=== PATIENT | male | born 1945 | race Caucasian/White ===

== ENCOUNTER 2022-03-31 10:40 | Outpatient (CLI) | payer MEDICARE, OTHER, SELFPAY | END 2022-03-31 10:41 | disposition home or self-care (01) | LOC: CHSOUTPT 10:52 | PROVIDERS: PCP Family Medicine; Visit Provider Specialist | DX: C44.319 Basal cell carcinoma of skin of other parts of face (principal) | CPT/HCPCS: 88305 ==

== ENCOUNTER 2023-04-13 09:47 | Outpatient (CLI) | payer MEDICARE, OTHER, SELFPAY | END 2023-04-13 09:48 | disposition home or self-care (01) | PROVIDERS: PCP Specialist; Visit Provider Specialist | DX: C44.319 Basal cell carcinoma of skin of other parts of face (principal) | CPT/HCPCS: 88305 ==

== ENCOUNTER 2023-08-03 17:09 | Emergency (ER) | payer OTHER, SELFPAY ==
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
[2023-08-03 17:17] VITALS: BP 142/74; PULSE 81; RESP 20; TEMP 36.7; O2SAT 94
[2023-08-03 17:40] VITALS: BP 139/90; PULSE 79; RESP 20; O2SAT 99
[2023-08-03 18:03] VITALS: BP 138/89; PULSE 78; RESP 18; TEMP 36.6; O2SAT 98
== END 2023-08-03 18:04 | disposition home or self-care (01) ==
PROVIDERS: Emergency Provider Emergency Medicine; PCP Family Medicine
DX: S29.012A Strain of muscle and tendon of back wall of thorax, initial encounter (principal); E78.5 Hyperlipidemia, unspecified; I10 Essential (primary) hypertension; Z79.899 Other long term (current) drug therapy; Z87.891 Personal history of nicotine dependence; V49.49XA Driver injured in collision with other motor vehicles in traffic accident, initial encounter
CPT/HCPCS: 72128; 99284; L0150

== ENCOUNTER 2024-06-13 12:55 | Outpatient (CLI) | payer MEDICARE, OTHER, SELFPAY | END 2024-06-13 12:56 | disposition home or self-care (01) | LOC: CHSLAB 12:58 | PROVIDERS: PCP Specialist; Visit Provider Specialist | DX: C44.629 Squamous cell carcinoma of skin of left upper limb, including shoulder (principal) | CPT/HCPCS: 88305 ==

== ENCOUNTER 2025-05-01 10:53 | Outpatient (CLI) | payer MEDICARE, OTHER, SELFPAY ==
--- NOTE | 2025-05-01 | S_PTH ---
PATIENT: Win Swenson LOC: [facility]#:[id number] AGE/SX: 80/M ROOM: RE05/01/[address]: Marc Taylor M.D. : 1945 BED: DIS: 05/01/2025 SPEC #: [id number] RECD: 05/01/25 17:31 STATUS: [place]ALL #: [id number] YNES: 05/01/25 00:[address]: Marc Taylor DEPT: [facility] Surgical RECD BY: Karina Quiros MLT, ([facility]) Tissues: A - Skin Bx B - Skin Bx C - Skin Bx Procedures: Hematoxylin and Eosin Stain Gross and Microscopic Level 4
--- OUTSIDE RECORDS SUMMARY | 2025-05-01 12:02 | XMS_ITS | Clinical Summary ---
Author Organization [facility] Address [address] [place] [address] Care Team Providers Care Refrigerator Assembler Name Role Phone Андрей Bettencourt MD Primary Care Provider [phone] Pamela THAKKAR MD, [facility] [phone] Allergies No known active allergies Medications aspirin 81 mg tablet Take one by mouth one time per day 0 0 06/06/20 07 Active psyllium, aspartame, SF (Metamucil Fiber Singles) 3.4 gram packet Take 1 packet by mouth daily Active clobetasoL (TEMOVATE) 0.05 % ointment APPLY OINTMENT TOPICALLY ONCE DAILY NEEDED TO HAND RASH 03/31/20 22 Active omeprazole (PriLOSEC) 20 mg capsuleIndications:Jacqueline roesophageal reflux disease with esophagitis Take 1 capsule by mouth once daily 100 capsule 03/09/20 25 Active atorvastatin (LIPITOR) 20 mg tabletIndications:Pure hypercholesterolemia Take 1 tablet by mouth once daily 100 tablet 03/09/20 25 Active doxazosin (CARDURA) 8 mg tabletIndications:Benig n hypertension Take 1 tablet by mouth nightly 90 tablet 03/12/20 25 Active Active Problems Problem Noted Date Diagnosed Date Chronic renal failure, stage 3a 02/07/2025 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 Recommended multivitamin, several brands discussed Assessment & Plan (08/02/2024 12:10 PM CDT): BMI Follow-up includes: nutrition counseling, exercise counseling, and education provided. Encounter for Medicare annual wellness exam 09/16 Assessment & Plan (08/02/2024 12:08 PM CDT): A(n) yearly Medicare Annual Wellness Visit has been performed today. Alec Cano is not up to date on screening tests. He is in need of hepatitis B screening . He is not up to date on needed preventative vaccinations; He is in need of Influenza and RSV . We discussed healthy lifestyle habits, educational material has been given. Medications reviewed, changes documented as per the medical record and discussed with patient along with risks vs benefits. Specific topics reviewed: drugs, ETOH, and tobacco, importance of regular dental care, importance of regular exercise, importance of varied diet, limit TV, media violence, minimize junk food, and seat belts. Return in 6 months Assessment & Plan (01/25/2023 9:55 PM CDT): A(n) yearly Medicare Annual Wellness Visit has been performed today. Alec Cano is up to date on screening tests. He is in need of None- no screening indicated at this time. He is not up to date on needed preventative vaccinations; He is in need of Covid-19 (booster). We discussed healthy lifestyle habits, educational material has been given. Medications reviewed, changes documented as per the medical record and discussed with patient along with risks vs benefits. 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 Alec Cano is up to date on screening tests. He is in need of None- no screening indicated at this time- these have been ordered. He is up to date on needed preventative vaccinations. Meclizine PRN for dizziness Kidney function is a bit decreased. 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 Alec Cano is up to date on screening tests. He is in need of None- no screening indicated at this time- these have been ordered. He is up to date on needed preventative vaccinations; These have been ordered/arranged unless otherwise indicated. Benign paroxysmal positional vertigo due to bilateral vestibular disorder 05/26/2018 Assessment & Plan (05/26/2018 11:49 AM CDT): Will give meclizine to try for vertigo. Discussed going to physical therapy for BPPV and pt was agreeable. 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 Overview (02/18/2017): IMPOTENCE, ORGANIC ORIGN Benign prostatic hyperplasia without urinary obs truction 03/31/2014 Overview (02/18/2017): BPH W/O URINARY OBSTRUCT Pure hypercholesterolemia 03/31/2014 Overview (02/19/2017): PURE HYPERCHOLESTEROLEM Gastroesophageal reflux disease with esophagitis 03/31/2014 Overview (02/20/2017): REFLUX ESOPHAGITIS Encounters Date Type Department Care Team Description 04/24/2025 1:45 PM CDT Office Visit [facility] at [address] [phone] Андрей Bettencourt MD Dizziness, nonspecific (Primary Dx) 04/24/2025 Nurse Triage [facility] at [address] [phone] Андрей Bettencourt MD 02/12/2025 Telephone [facility] at [address] [phone] Андрей Bettencourt MD Medical Question/Miscellaneous 02/07/2025 10:30 AM CDT Office Visit [facility] at [address] [phone] Андрей Bettencourt MD Benign hypertension (Primary Dx); Pure hypercholesterolemia; 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 (HCC); Chronic renal failure, stage 3a (HCC); Asbestosis (HCC); Benign prostatic hyperplasia without urinary obstruction 01/31/2025 10:25 AM CDT [address] Class 1 obesity due to excess calories without serious comorbidity with body mass index (BMI) of 30.0 to 30.9 in adult; Chronic renal failure, stage 3a (HCC); Benign prostatic hyperplasia without urinary obstruction; Benign hypertension; Pure hypercholesterolemia; Gastroesophageal reflux disease with esophagitis without hemorrhage 01/31/2025 Results Follow-Up [facility] at [address] [phone] Vandana Figueroa NP Vitamin D 25 hydroxy, PSA diagnostic, Lipid panel, Additional followed-up results: 4 from Last 3 Months Immunizations Immunization Administration Dates Next Due Influenza, Quad, Adjuvantate d, Intramuscular 08/24/2023,09/02/2022 Influenza, Quadrivalent, Hig h Dose, Preservative Free, Intrr 09/03/2021,10/08/2020 Influenza, Quadrivalent, Spl it, Intramuscular 08/21/2015 Influenza, Trivalent, Adjuva nted, Intramuscular 09/21/2024 Influenza, Trivalent, High D ose, Split, Preservative Free, Intramuscular 09/06/2019,08/28/2018,08/31/2017,09/04,08/13/2015,08/15/2014 Influenza, Trivalent, IM (MDV) 08/10/2013,2011 Influenza, Trivalent, Preser vative Free, Intramuscular 10/25/2012 Influenza, Unspecified 01/31/2024(Deferr ed: Patient Refused),11/15/2022(Deferred: Patient Refused),10/08/2020,08/29/2018, 017 Pneumococcal Conjugate PCV 13 08/21/2015 Pneumococcal Conjugate Pcv20 06/02/2022 Pneumococcal Polysaccharide PPV23 05/02/2010 RSV, Bivalent, Protein Subun it Rsvpref, Diluent (Abrysvo) 08/24/2024 Tdap 04/03/2019 ZOSTER Recombinant 07/11/2019,05/10/2019 Surgical History Surgery Date Site/Laterality Comments CATARACT EXTRACTION 11/15/2023 - 11/14/2024 Bilateral Medical History Medical History Date Comments Asbestosis (HCC) 03/31/2014 ASBESTOSIS Benign hypertension 03/31/2014 BENIGN HYPER TENSION 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 IMPO TENCE, ORGANIC ORIGN Benign prostatic hypertrophy without urinary obstruction 03/31/2014 BPH W/O URINARY OBSTRUCT Pure hypercholesterolemia 03/31/2014 PURE H YPERCHOLESTEROLEM Gastroesophageal reflux disease with esophagitis 03/31/2014 REFLUX ESOPHAGITIS Benign paroxysmal positional vertigo due to bilateral vestibular disorder 05/26/2018 Family History Medical History Relation Name Comments Coronary artery disease Other Fami ly history of Coronary artery disease, premature; Relation Name Status Comments Other Social History Tobacco Use Types Packs/Day Years Used Date Smoking Tobacco: Former Cigarettes 30 1 966 - 1995 Passive Smoke Exposure: Past Smokeless Tobacco: Never Tobacco Cessation:Counseling Given: Not Answered Alcohol Use Standard Drinks/Week Comments No 0 (1 standard drink = 0.6 oz pur e alcohol) Humiliation, Afraid, Rape, and Kick questionnair e Answer Date Recorded Within the last year, have y ou been afraid of your partner or ex-partner? No 10/13/2021 Within the last year, have y ou been humiliated or emotionally abused in other ways by your partner or ex-partner? No Within the last year, have y ou been kicked, hit, slapped, or otherwise physically hurt by your partner or ex-partner? No 10/13/2021 Within the last year, have y ou been raped or forced to have any kind of sexual activity by your partner or ex-partner? No 10/13/2021 Social Connection and Isolat ion Panel [NHANES] Answer Date Recorded In a typical week, how many times do you talk on the phone with family, friends, or neighbors? More than three times a week 10/13/2021 Frequency of Social Gatherin gs with Friends and Family Not on file 10/13/2021 How often do you attend [facility] or [facility] services? Never 10/13/2021 Active Member of Clubs or Organizations Not on f ile 10/13/2021 Attends Club or Organization Meetings Not on ok e 10/13/2021 Are you , , di vorced, , never , or living with a partner? 10/13/2021 AUDIT-C Answer Date Recorded Q1: How often do you have a drink containing alc ohol? Never 08/02/2023 Average Number of Drinks Not on file 023 Frequency of Binge Drinking Not on file 07/16 Overall Financial Resource Strain (CARDIA) Answe r Date Recorded How hard is it for you to pa y for the very basics like food, housing, medical care, and heating? Not hard at all 10/13/2021 PHQ-2 Answer Date Recorded PHQ-2 Total Score (If total score is 3 or more points, staff should administer the PHQ-9) 0 02/07/2025 [facility] - Occupational Stress Questionnaire Answer Date Recorded Do you feel stress - tense, restless, nervous, or anxious, or unable to sleep at night because your mind is troubled all the time - these days? Not at all 10/13/2021 Exercise Vital Sign Answer Date Recorde d Days of Exercise per Week 3 days 2018 Minutes of Exercise per Session 10 min 04/04/2019 Hunger Vital Sign Answer Date Recorded Within the past 12 months, y ou worried that your food would run out before you got the money to buy more. Never true 10/13/20 21 Within the past 12 months, t he food you bought just didn't last and you didn't have money to get more. Never true 10/13/2021 PRAPARE - Transportation Answer Date Re corded In the past 12 months, has l ack of transportation kept you from medical appointments or from getting medications? No 09/16 In the past 12 months, has l ack of transportation kept you from meetings, work, or from getting things needed for daily living? No 10/13/2021 Housing Stability Vital Sign Answer Rl e Recorded In the last 12 months, was t here a time when you were not able to pay the mortgage or rent on time? No 10/13/2021 Number of Places Lived in the Last Year Not on f ile 10/13/2021 In the last 12 months, was t here a time when you did not have a steady place to sleep or slept in a fci (including now)? No 10/13/2021 Education Answer Date Recorded What is the highest level of school you have completed or the highest degree you have received? 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 Gender Identity Not on file Sexual Orientation Not on file Obstetrics History Last Filed Vital Signs Vital Sign Reading Time Taken Comments Blood Pressure 154/90 04/24/2025 1:53 PM CDT Pulse 84 04/24/2025 1:53 PM CDT Temperature 36 C (96.8 F) 04/24/2025 1:53 PM CDT Respiratory Rate 18 04/24/2025 1:53 PM CDT Oxygen Saturation 98% 04/24/2025 1:53 PM CDT Inhaled Oxygen Concentration - - Weight 89.4 kg (197 lb) 04/24/2025 1:53 PM CDT Height 175.3 cm (5' 9) 04/24/2025 1:53 PM CDT Body Mass Index 29.09 04/24/2025 1:53 PM CDT Plan of Treatment Health Maintenance Due Date Last Done Comments Hepatitis B Screening 1963 Covid-19 Vaccine (2023- 5 season) 2024 07/08/2021, 06/17/2021 Fall Risk Assessment 08/02/2025 08/02/2024, 01/31/2024, 08/02/2023, Additional history exists Well Visit 65+ 08/02/2025 08/02/2024, 01/13, 10/13/2021, Additional history exists Depression Screening 02/07/2026 02/07/2025, 08/02/2024, 01/31/2024, Additional history exists DTaP/Tdap/Td Vaccine (2 - Td or Tdap) 04/03/2029 04/03/2019 Abdominal Aortic Aneurysm (A AA) Screen Completed 05/02/2019 Zoster Vaccine Completed 07/11/2019, 05/10/2019 Colon Cancer Screening-CT Colonography Discontinued 10/24/2019 Colon Cancer Screening-Colonoscopy Discontinued 10/24/2019 Colon Cancer Screening-DNA Stool Discontinued 10/24/20 19, 10/24/2019 Colon Cancer Screening-FIT Discontinued 10/24/2019, Colon Cancer Screening-FOBT Discontinued 10/24/2019, 1 12/25/2018 Colon Cancer Screening-Sigmoidoscopy Discontinued 10/24/2019 Colorectal Cancer Screening Discontinued Pneumococcal vaccine 65+ Completed 022, 08/21/2015, 05/02/2010 Influenza Vaccine Completed 09/21/2024, , 09/02/2022, Additional history exists Procedures Procedure Name Priority Date/Time Associated Diagnosis Comments EGFR Routine 01/31/2025 10:28 AM CDT Benign hypertension Chronic renal failure, stage 3a (HCC) DIFFERENTIAL AUTO Routine 01/31/2025 10:28 AM CDT Benign hypertension Gastroesophageal reflux disease with esophagitis without hemorrhage CBC WITH AUTO DIFFERENTIAL Routine 01/31/2025 10:28 AM CDT Benign hypertension Gastroesophageal reflux disease with esophagitis without hemorrhage COMPREHENSIVE METABOLIC PANEL Routine 01/31/2025 10:28 AM CDT Benign hypertension Chronic renal failure, stage 3a (HCC) LIPID PANEL Routine 01/31/2025 10:28 AM CDT Benign hypertension Pure hypercholesterolemia PSA DIAGNOSTIC Routine 01/31/2025 10:28 AM CDT Benign prostatic hyperplasia without urinary obstruction VITAMIN D 25 HYDROXY Routine 01/31/2025 10:28 AM CDT Class 1 obesity due to excess calories without serious comorbidity with body mass index (BMI) of 30.0 to 30.9 in adult Chronic renal failure, stage 3a (HCC) COLONOSCOPY Routine 10/24/2019 ABDOMINAL AORTIC ANEURYSM SCREENING Schedule Routine, Read Routine (OP Routine) 05/02/2019 11:02 AM CDT Screening for abdominal aortic aneurysm from Last 3 Months or Most Recently Relevant to Health Maintenance Results * (ABNORMAL) eGFR (01/31/2025 10:28 AM CDT) eGFR 45(L) >=60 mL/min/1. 73 m2 Comment: Interpretive Data Reference Interval Normal >/= 90 mL/min/1.73m2 Mildly decreased* 60 - 89 mL/min/1.73m2 Mildly to moderately decreased 45 - 59 mL/min/1.73m2 Moderately to severely decreased 30 - 44 mL/min/1.73m2 Severely decreased 15 - 29 mL/min/1.73m2 Kidney Failure < 15 mL/min/1.73m2 *Relative to young adult level Estimated glomerular filtration rate is determined by the 2020 CKD-EPI equation recommended by the National Kidney Foundation (A Unifying Approach to GFR Estimation: Recommendations of the NKF-ASK Task Force on Reassessing the Inclusion of Race in Diagnosing Kidney Disease, JASN 2020). The CKD-EPI equation should not be used for patients with unstable renal function and has not been validated in children and those over 70. Current interpretive data was last reviewed 2021. Blood 01/31/2025 10:2 8 AM CDT 01/31/2025 1:44 PM CDT us Андрей Bettencourt MD LAB BLOOD ORDERABLES Final Result [facility]AG[facility]) [address] Department [place] [address] * Differential, auto (01/31/2025 10:28 AM CDT) Neutrophil abs 4.0 1.5 - 6.5 K/cumm Imm gran abs 0.0 0.0 - 0.1 K/cumm [facility] ([place]) Lymphocyte abs 1.8 0.8 - 3.3 K/cumm [facility] ([place]) Monocyte abs 0.6 0.2 - 0.8 K/cumm [facility] ([place]) Eosinophil abs 0.2 0.0 - 0.5 K/cumm [facility] ([place]) Basophil abs 0.0 0.0 - 0.1 K/cumm [facility] ([place]) Neutrophil pct 60.9 % [facility] ([place]) Comment: Interpretive Data Percent cell count reference ranges are not reported, since discordance with absolute values may lead to misinterpretation of CBC data. Current Interpretive Data was last revised on 2018. Imm gran pct 0.3 % [facility] ([place]) Comment: Interpretive Data Percent cell count reference ranges are not reported, since discordance with absolute values may lead to misinterpretation of CBC data. Current Interpretive Data was last revised on 2018. Lymphocyte pct 27.3 % [facility] ([place]) Comment: Interpretive Data Percent cell count reference ranges are not reported, since discordance with absolute values may lead to misinterpretation of CBC data. Current Interpretive Data was last revised on 2018. Monocyte pct 8.6 % [facility] ([place]) Comment: Interpretive Data Percent cell count reference ranges are not reported, since discordance with absolute values may lead to misinterpretation of CBC data. Current Interpretive Data was last revised on 2018. Eosinophil pct 2.3 % [facility] ([place]) Comment: Interpretive Data Percent cell count reference ranges are not reported, since discordance with absolute values may lead to misinterpretation of CBC data. Current Interpretive Data was last revised on 2018. Basophil pct 0.6 % [facility] ([place]) Comment: Interpretive Data Percent cell count reference ranges are not reported, since discordance with absolute values may lead to misinterpretation of CBC data. Current Interpretive Data was last revised on 2018. Blood 01/31/2025 10:2 8 AM CDT 01/31/2025 1:44 PM CDT us Андрей A. Fullerton MD LAB BLOOD ORDERABLES Final Result [facility] ([place]) [address] [facility] [place] [address] * CBC with auto differential (01/31/2025 10:28 AM CDT) WBC 6.5 3.8 - 9.9 K/cumm Hgb 13.2 13.0 - 17.5 g/dL [facility] ([place]) Hct 39.4 38.9 - 50.3 % [facility] ([place]) Plt 161 150 - 400 K/cumm [facility] ([place]) MPV 12.0 9.1 - 12.3 fL [facility] ([place]) RBC 4.35 4.30 - 5.80 M/cumm [facility] ([place]) MCV 90.6 81.3 - 96.4 fL [facility] ([place]) MCH 30.3 27.1 - 33.3 pg [facility] ([place]) MCHC 33.5 32.3 - 35.7 g/dL [facility] ([place]) RDW CV 12.7 11.1 - 14.9 % [facility] ([place]) RDW SD 41.9 35.7 - 48.1 fL [facility] ([place]) NRBC abs 0.00 0.00 - 0.01 K/cumm [facility] ([place]) Blood 01/31/2025 10:2 8 AM CDT 01/31/2025 1:44 PM CDT Андрей Bettencourt MD LAB BLOOD ORDERABLES Final Result [facility] ([place]) [address] [facility] [employer] [address] * (ABNORMAL) Vitamin D 25 hydroxy (01/31/2025 10:28 AM CDT) Vitamin D 25-OH 22(L) 30 - 80 ng/mL Blood 01/31/2025 10:2 8 AM CDT 01/31/2025 1:44 PM CDT Андрей Bettencourt MD LAB BLOOD ORDERABLES Final Result Performing Organization Address [facility] Co de Phone Number [facility] CHEN DAGMAR) [address] [place] [address] * PSA diagnostic (01/31/2025 10:28 AM CDT) PSA-Total 4.95 <=6.20 ng/mL Comment: Interpretive Data AGE SEX REFERENCE INTERVAL 0 minutes-150 years Female None 0 minutes-49 years Male None 50-59 years Male 0-3.90 60-69 years Male 0-5.40 70-79 years Male 0-6.20 80-150 years Male 0-6.20 The Clara PSA Total assay procedure was used. Results from different manufacturers or methods may not be comparable. Serial testing should be performed using the same method. Current interpretive data last revised 22. Blood 01/31/2025 10:2 8 AM CDT 01/31/2025 1:44 PM CDT Андрей Bettencourt MD LAB BLOOD ORDERABLES Final Result Performing Organization Address [facility] de Phone Number [facility] ([place]) [address] [place] [phone] * Lipid panel (01/31/2025 10:28 AM CDT) Cholesterol 147 30 - 199 mg/dL Comment: Interpretive Data Ages < or = 19 years Acceptable: <170 mg/dL Borderline high: 170-199 mg/dL High: >or= 200 mg/dL Ages > or = 20 years Desirable: <200 mg/dL Borderline high: 200-239 mg/dL High: >or= 240 mg/dL Literature References: 1. Expert Panel on Integrated Guidelines for Cardiovascular Health and Risk Reduction in Children and Adolescents. Pediatrics 2011;128:S213 2. NCEP Expert Panel. Circulation 2004;110:227 Current Interpretive Data was last revised on 2018. Triglycerides 86 <=149 mg/dL [facility] ([place]) Comment: Interpretive Data Ages < or = 9 years Acceptable: <75 mg/dL Borderline high: 75-99 mg/dL High: >or= 100 mg/dL Ages 10 to 20 years Acceptable: <90 mg/dL Borderline high: 90-129 mg/dL High: >or= 130 mg/dL Ages > or = 20 years Desirable: <150 mg/dL Borderline high: 150-199 mg/dL High: 200-499 mg/dL Very high: >or= 499 mg/dL Literature References: 1. Expert Panel on Integrated Guidelines for Cardiovascular Health and Risk Reduction in Children and Adolescents. Pediatrics 2011;128:S213 2. NCEP Expert Panel. Circulation 2004;110:227 Current Interpretive Data was last revised on 2018. HDL 49 >=40 mg/dL [facility] ([place]) Comment: Interpretive Data Ages < or = 19 years Acceptable: >45 mg/dL Borderline low: 40-45 mg/dL Low: <40 mg/dL Ages > or = 20 years Desirable: >or= 60 mg/dL Low: <40 mg/dL Literature References: 1. Expert Panel on Integrated Guidelines for Cardiovascular Health and Risk Reduction in Children and Adolescents. Pediatrics 2011;128:S213 2. NCEP Expert Panel. Circulation 2004;110:227 Current Interpretive Data was last revised on 2018. LDL, calculated 82 <=129 mg/dL [facility] ([place]) Comment: Interpretive Data Ages < or = 19 years Acceptable: <110 mg/dL Borderline high: 110-129 mg/dL High: >or= 130 mg/dL Ages > or = 20 years Optimal: <100 mg/dL Near optimal: 100-129 mg/dL Borderline high: 130-159 mg/dL High: >160 mg/dL Calculated using the Edwin LDL-C estimating equation. This equation was implemented on 2024. Prior to this date LDL-C was estimated using the Friedewald equation. Literature References: 1. Expert Panel on Integrated Guidelines for Cardiovascular Health and Risk Reduction in Children and Adolescents. Pediatrics 2011;128:S213 2. NCEP Expert Panel. Circulation 2004;110:227 3. Edwin Ureña et al. TRE Cardiol. 2020 March 15;5(5):540-548. doi: 10.1001/jamacardio.2020.0013 Current Interpretive Data was last revised on 2024. Non-HDL Cholesterol 98 mg/dL [facility] ([place]) Comment: Interpretive Data Ages < or = 19 years Acceptable: <120 mg/dL Borderline high: 120-144 mg/dL High: >145 mg/dL Ages > or = 20 years When triglycerides are >200 mg/dL, Non-HDL cholesterol is a secondary target of therapy with treatment goals that are 30 mg/dL greater than the LDL cholesterol target. Literature References: 1. Expert Panel on Integrated Guidelines for Cardiovascular Health and Risk Reduction in Children and Adolescents. Pediatrics 2011;128:S213 2. NCEP Expert Panel. Circulation 2004;110:227 Current Interpretive Data was last revised on 2018. Chol/HDL ratio 3 [facility] ([place]) Blood 01/31/2025 10:2 8 AM CDT 01/31/2025 1:44 PM CDT Андрей Bettencourt MD LAB BLOOD ORDERABLES Final Result [facility] ([place]) [address] [facility] Department of Laboratories [place], [place] [id number] * (ABNORMAL) Comprehensive metabolic panel (01/31/2025 10:28 AM CDT) Sodium 137 135 - 145 mmol/L Potassium, pl 4.7 3.3 - 4.9 mmol/L [facility]) Chloride 102 97 - 110 mmol/L [facility]) CO2 26 22 - 32 mmol/L [facility]) Anion gap 10 2 - 15 mmol/L [facility] ([place]) BUN 18 6 - 25 mg/dL [facility] ([place]) Creatinine 1.56(H) 0.80 - 1.30 mg/dL [facility] ([place]) Glucose 87 70 - 199 mg/dL [facility] ([place]) Comment: Interpretive Data Fasting glucose >/= 126 mg/dl is diagnostic for diabetes. Fasting is defined as no caloric intake for at least 8 hours. Fasting glucose between 100 mg/dl to 125 mg/dl is diagnostic of prediabetes. In a patient with classic symptoms of hyperglycemia or hyperglycemic crisis, a random glucose >/= 200 mg/dl is diagnostic for diabetes. In the absence of unequivocal hyperglycemia, results should be confirmed by repeat testing. The classification and Diagnosis of Diabetes Diabetes Care 202; 46: S19-S40. Current interpretive data was last revised 2022. Calcium 9.3 8.5 - 10.3 mg/dL [facility] Bilirubin, total 0.7 0.1 - 1.2 mg/dL [facility] Protein, pl 6.7 6.5 - 8.5 g/dL [facility]) Albumin 4.1 3.5 - 5.0 g/dL [facility] Alk phos 68 40 - 130 Units/L [facility] ALT 16 7 - 55 Units/L [facility] AST 21 10 - 50 Units/L [facility]) Blood 01/31/2025 10:2 8 AM CDT 01/31/2025 1:44 PM CDT Андрей Bettencourt MD LAB BLOOD ORDERABLES Final Result [facility] ([place]) 1 [facility] Department [place] [address] * COLONOSCOPY (10/24/2019) Colonoscopy Normal Comment:Cologuard Historical Provider HEALTH MAINTENANCE Final Result * US Abdominal Aortic Aneurysm Screening (05/02/2019 11:02 AM CDT) Anatomical Region Laterality Modality Abdomen Ultrasound 05/02/2019 11:0 6 AM CDT Impressions 05/02/2019 11:07 AM CDT NO ABDOMINAL AORTIC ANEURYSM IDENTIFIED. Electronically signed by: Cortez Crenshaw M.D. Narrative 05/02/2019 11:07 AM CDT US ABDOMINAL AORTIC ANEURYSM SCREENING HISTORY: Encounter for screening for cardiovascular disorders. Evaluate for abdominal aortic aneurysm. Hypertension. TECHNIQUE: A scale and color Doppler imaging COMPARISON: None available. FINDINGS: There is no abdominal aortic aneurysm. Maximal transverse diameter of the abdominal aorta is 2.8 cm. Procedure Note Cortez Crenshaw MD - 05/02/2019 US ABDOMINAL AORTIC ANEURYSM SCREENING HISTORY: Encounter for screening for cardiovascular disorders. Evaluate for abdominal aortic aneurysm. Hypertension. TECHNIQUE: A scale and color Doppler imaging COMPARISON: None available. FINDINGS: There is no abdominal aortic aneurysm. Maximal transverse diameter of the abdominal aorta is 2.8 cm. IMPRESSION: NO ABDOMINAL AORTIC ANEURYSM IDENTIFIED. Electronically signed by: Cortez Crenshaw M.D. us Андрей Bettencourt MD [facility] US PROCEDURES Final Res ult from Last 3 Months or Most Recently Relevant to Health Maintenance Insurance [facility] [place] MEDICARE [facility] Address: [facility] [address] [place] [address] MEDICARE [facility] Care Teams Refrigerator Assembler Relationship Specialty Start Date End Date Андрей Bettencourt MD PCP - General 03/12/08 [place] [id number] [place] [address] Consulting Physician Urology 03/30/18
--- OUTSIDE RECORDS SUMMARY | 2025-05-01 12:02 | XMS_ITS | Referral Summary ---
Author Organization [facility] Address [address] [place] [address] Care Team Providers Care Design Cell Engineer Name Role Phone Андрей Bettencourt MD Primary Care Provider [phone] Pamela THAKKAR MD, [facility] [phone] Encounters Date Type Department Care Team Description 04/24/2025 1:45 PM CDT Office Visit [facility] [address] [phone] Андрей Bettencourt MD Dizziness, nonspecific (Primary Dx) 04/24/2025 Nurse Triage [facility] [address] [phone] Андрей Bettencourt MD 02/12/2025 Telephone [facility] [address] [phone] Андрей Bettencourt MD Medical Question/Miscellaneous 02/07/2025 10:30 AM CDT Office Visit [facility] at [address] [phone] Андрей Bettencourt MD Benign hypertension (Primary Dx); Pure hypercholesterolemia; 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 (HCC); Chronic renal failure, stage 3a (HCC); Asbestosis (HCC); Benign prostatic hyperplasia without urinary obstruction 01/31/2025 Results Follow-Up [facility] at [address] [phone] Vandana Figueroa NP Vitamin D 25 hydroxy, PSA diagnostic, Lipid panel, Additional followed-up results: 4 01/31/2025 10:25 AM CDT [address] Class 1 obesity due to excess calories without serious comorbidity with body mass index (BMI) of 30.0 to 30.9 in adult; Chronic renal failure, stage 3a (HCC); Benign prostatic hyperplasia without urinary obstruction; Benign hypertension; Pure hypercholesterolemia; Gastroesophageal reflux disease with esophagitis without hemorrhage from Last 3 Months Allergies No known active allergies Medications aspirin [...] months Assessment & Plan (10/14/2021 2:27 PM GUT DROPPER): A yearly Medicare Annual Wellness Visit has [...] doxazosin Assessment & Plan (10/13/2020 3:29 PM GUT DROPPER): A yearly Medicare Annual Wellness Visit has [...] with esophagitis 03/31/2014 Overview (02/20/2017): REFLUX ESOPHAGITIS Immunizations Immunization Administration Dates Next Due Influenza, [...] (Abrysvo) 08/24/2024 Tdap 04/03/2019 ZOSTER Recombinant 07/11/2019,05/10/2019 Social History Tobacco Use Types Packs/Day Years Used Date Smoking Tobacco: Former Cigarettes 966 1995 Passive Smoke Exposure: Past Smokeless Tobacco: [...] file 10/13/2021 How often do you attend chur ch or oriental orthodox services? Never 10/13/2021 Active Member of Clubs [...] staff should administer the PHQ-9) 0 02/07/2025 [facility] Occupat ional Health - Occupational Stress [...] place to sleep or slept in a senior care (including now)? No 10/13/2021 Education Answer Date Recorded What is the highest level of school you have completed or the highest degree you have received? High school graduate 04/04/2019 Sex and Gender Information Value Date Recorded Sex Assigned at Not on file Legal Sex Male 1:14 PM GUT DROPPER Gender Identity Not on file Sexual Orientation Not on file Last Filed Vital Signs Vital Sign Reading [...] 04/24/2025 1:53 PM CDT Plan of Treatment Not on file Procedures Procedure Name Priority Date/Time Associated Diagnosis [...] of Race in Diagnosing Kidney Disease, JASN 202). The CKD-EPI equation should not be used for patients with unstable renal function and has not been validated in children and those over 70. Current interpretive data was last reviewed 2021. Blood 01/31/2025 10:2 8 AM CDT 01/31/2025 1:44 PM CDT us Андрей Bettencourt MD LAB BLOOD ORDERABLES Final Result [facility] 1 [facility] Department [place] [address] * Differential, auto (01/31/2025 10:28 [...] ORDERABLES Final Result [facility] 1 [facility] [place] [address] * CBC with auto differential (01/31/2025 10:28 [...] ORDERABLES Final Result [facility] ([place]) 1 [facility] Department [place] [address] * (ABNORMAL) Vitamin D 25 hydroxy (01/31/2025 10:28 AM CDT) Vitamin D 25-OH 22(L) 30 - 80 ng/mL Blood 01/31/2025 10:2 8 AM CDT 01/31/2025 1:44 PM CDT Андрей Bettencourt MD LAB BLOOD ORDERABLES Final Result Performing Organization Address City/[facility] Co de Phone Number [facility]) [address] [place] [address] * PSA diagnostic (01/31/2025 10:28 AM CDT) [...] BLOOD ORDERABLES Final Result Performing Organization Address City/[facility] Co de Phone Number [facility] ([facility]) 1 [facility] [place] [address] * Lipid panel (01/31/2025 10:28 AM CDT) [...] 2018. Triglycerides 86 <=149 mg/dL [facility] ([facility]) Comment: Interpretive Data Ages < or = [...] on 2018. HDL 49 >=40 mg/dL [facility]) Comment: Interpretive Data Ages < or = [...] 2018. LDL, calculated 82 <=129 mg/dL [facility]) Comment: Interpretive Data Ages < or = [...] ORDERABLES Final Result [facility] 1 [facility] Department [place] [address] * (ABNORMAL) Comprehensive metabolic panel (01/31/2025 10:28 AM CDT) Sodium 137 135 - 145 mmol/L Potassium, pl 4.7 3.3 - 4.9 mmol/L [facility] Chloride 102 97 - 110 mmol/L [facility] CO2 26 22 - 32 mmol/L [facility]) Anion gap 10 2 - 15 mmol/L [facility]) BUN 18 6 - 25 mg/dL [facility]) Creatinine 1.56(H) 0.80 - 1.30 [...] classification and Diagnosis of Diabetes Diabetes Care 2021; 46: S19-S40. Current interpretive data was last [...] ORDERABLES Final Result [facility] 1 [facility] Department of Laboratories [place], [place] [id number] * COLONOSCOPY (10/24/2019) Colonoscopy Normal Comment:Cologuard Historical [...] Cortez Crenshaw M.D. us Андрей Bettencourt MD [facility] PROCEDURES Final Res ult from Last 3 Months or Most Recently Relevant to Health Maintenance Insurance [facility] [place] MED[place]ARE MEDICARE [facility] [place] Care Teams Design Cell Engineer Relationship Specialty Start Date End Date Андрей Bettencourt MD PCP - General 03/12/08 [place] [address] [place] [address] Consulting Physician Urology 03/30/18
== END 2025-05-01 10:54 | disposition home or self-care (01) ==
LOC: CHSLAB 10:57
PROVIDERS: PCP Specialist; Visit Provider Specialist
DX: C44.622 Squamous cell carcinoma of skin of right upper limb, including shoulder (principal); C44.42 Squamous cell carcinoma of skin of scalp and neck; C44.41 Basal cell carcinoma of skin of scalp and neck; C44.319 Basal cell carcinoma of skin of other parts of face
CPT/HCPCS: 88305